=== PATIENT | female | born 1960 | race Caucasian/White ===

== ENCOUNTER → 2017-03-25 | Outpatient (CLI) | payer BC ==
--- NOTE | 2017-03-29 07:20 | MM ---
Reason for exam: screening (asymptomatic). Last mammogram was performed 1 year and 4 months ago. History: Patient had first child at age 40. Family history of breast cancer in maternal aunt at age 60, breast cancer in maternal cousin at age 50, breast cancer in paternal cousin at age 50, breast cancer in paternal cousin at age 45, and breast cancer in maternal aunt at age 50. Took hormonal contraceptives for 17 years beginning at age 29. Physical Findings: A clinical breast exam by your physician is recommended on an annual basis and results should be correlated with mammographic findings. MG 3D Screening Mammo W/Cad Bilateral CC and MLO view(s) were taken. Prior study comparison: December 08, 2015, bilateral MG screening mammo w CAD. September 30, 2014, bilateral MG screening mammo w CAD. August 14, 2013, bilateral digital screening mammo w/CAD. July 24, 2012, bilateral digital screening mammo w/CAD. The breast tissue is heterogeneously dense. This may lower the sensitivity of mammography. No significant changes when compared with prior studies. ASSESSMENT: Negative, BI-RAD 1 RECOMMENDATION: Routine screening mammogram of both breasts in 1 year.
== END | disposition home or self-care (01) ==
LOC: RADMAMWWP 07:48
PROVIDERS: ATTEND Obstetrics & Gynecology
DX: Z12.31 Encounter for screening mammogram for malignant neoplasm of breast (principal); Z80.3 Family history of malignant neoplasm of breast
CPT/HCPCS: 77063; G0202

== ENCOUNTER → 2017-04-18 | Outpatient (CLI) | payer BC ==
--- NOTE | 2017-04-19 10:32 | BD ---
EXAMINATION TYPE: MG DEXA axial skeleton. DATE OF EXAM: 04/18/2017 COMPARISON: NONE CLINICAL HISTORY: N92.1 POST MENOPAUSAL Height: 62 Weight: 146 FRAX RISK QUESTIONS: Alcohol (3 or more units per day): NO Family History (Parent hip fracture): NO Glucocorticoids (More than 3mos): NO (Ex: prednisone, prednisolone, methylprednisolone, dexamethasone, and hydrocortisone). History of Fracture in Adulthood: NO Secondary Osteoporosis: NO 1. Type 1 Diabetes: NO 2. Hyperthyroidism: NO 3. Menopause before 45: NO 4. Malnutrition: NO 5. Chronic liver disease: NO Rheumatoid Arthritis: NO Current Tobacco Use: RISK FACTORS HISTORY OF: ONLY BROKEN TOE IN HER 20'S Family History of Osteoporosis: YES HER MOTHER, NO BROKEN HIP Active: NOT REALLY Diet low in dairy products/other sources of calcium: NO Postmenopausal woman: NOW If Premenopausal, do you have irregular periods: LMP DECEMBER 2016 Lost more than 2 inches in height since high school: NO Hyperparathyroidism: NO Adrenal Insufficiency: NO MEDICATIONS: Prednisone or other steroids: ALBUTEROL INHALERS PRN, NEEL DAILY How Long: FOR YRS Additional Medications: BP MEDS, PROZAC, MULTIVITAMIN, Additional History: ALLERGIES AND TOUCH OF ASTHMA EXAM MEASUREMENTS: Bone mineral densitometry was performed using the [employer] System. Bone mineral density as measured about the Lumbar spine is: ----- L1-L4(G/cm2): 1.303 T Score Values are as follows: ----- L1: 0.8 ----- L2: 0.5 ----- L3: 1.7 ----- L4: 0.9 ----- L1-L4: 1.0 Bone mineral density THIS IS HER FIRST BONE DENSITY EXAM......BASELINE STUDY Bone mineral density about the R hip (g/cm2): 0.947 Bone mineral density about the L hip (g/cm2): 0.904 T Score values are as follows: -----R Neck: -0.7 -----L Neck: -0.6 -----R Total: -0.5 -----L Total: -0.8 Bone mineral density BASELINE STUDY FOR HER TODAY FRAX %'S: THERE IS A 5.5% CHANCE OF A MAJOR OSTEOPOROSIS FX AND A 0.2% CHANCE OF HIP FX......PRO BABILITY IN 10/YRS TIME IMPRESSION: Normal (Values between +1 and -1 indicate normal bone mass). Consider repeating this study in 5 year s or sooner if there is some new clinical indication. FOR BOTH OF HER HIPS AND FOR HER LUMBAR SPINE . NOTE: T-SCORE=SD OF THE YOUNG ADULT MEAN.
== END | disposition home or self-care (01) ==
LOC: RADBDWWP 14:54
PROVIDERS: ATTEND Obstetrics & Gynecology
DX: N95.1 Menopausal and female climacteric states (principal)
CPT/HCPCS: 77080

== ENCOUNTER → 2019-09-24 | Outpatient (CLI) | payer BC ==
--- NOTE | 2019-09-25 09:21 | MM ---
Reason for exam: screening (asymptomatic). Last mammogram was performed 2 years and 6 months ago. History: Patient is postmenopausal and had first child at age 40. Family history of breast cancer in maternal aunt at age 60, breast cancer in maternal cousin at age 50, breast cancer in paternal cousin at age 50, breast cancer in paternal cousin at age 45, and breast cancer in maternal aunt at age 50. Took hormonal contraceptives for 17 years beginning at age 29. Physical Findings: A clinical breast exam by your physician is recommended on an annual basis and results should be correlated with mammographic findings. MG 3D Screening Mammo W/Cad Bilateral CC and MLO view(s) were taken. Prior study comparison: March 25, 2017, bilateral MG 3d screening mammo w/cad. December 08, 2015, bilateral MG screening mammo w CAD. There are scattered fibroglandular densities. No suspicious abnormality. No significant changes when compared with prior studies. ASSESSMENT: Negative, BI-RAD 1 RECOMMENDATION: Routine screening mammogram of both breasts in 1 year.
== END | disposition home or self-care (01) ==
LOC: RADMAMWWP 13:00
PROVIDERS: ATTEND Family Medicine
DX: Z12.31 Encounter for screening mammogram for malignant neoplasm of breast (principal)
CPT/HCPCS: 77063; 77067

== ENCOUNTER → 2022-01-26 | Outpatient (CLI) | payer OTHER ==
--- NOTE | 2022-01-27 13:50 | MM ---
Reason for exam: screening (asymptomatic). Last mammogram was performed 2 years and 4 months ago. History: Patient is postmenopausal and had first child at age 40. Family history of breast cancer in maternal aunt at age 60, breast cancer in maternal cousin at age 50, breast cancer in paternal cousin at age 50, breast cancer in paternal cousin at age 45, and breast cancer in maternal aunt at age 50. Took hormonal contraceptives for 17 years beginning at age 29. Physical Findings: A clinical breast exam by your physician is recommended on an annual basis and results should be correlated with mammographic findings. MG 3D Screening Mammo W/Cad Bilateral CC and MLO view(s) were taken. Prior study comparison: September 24, 2019, bilateral MG 3d screening mammo w/cad. March 25, 2017, bilateral MG 3d screening mammo w/cad. The breast tissue is heterogeneously dense. This may lower the sensitivity of mammography. There is no discrete abnormality. No significant changes when compared with prior studies. ASSESSMENT: Negative, BI-RAD 1 RECOMMENDATION: Routine screening mammogram of both breasts in 1 year.
== END | disposition home or self-care (01) ==
LOC: RADMAMWWP 14:43
PROVIDERS: ATTEND Family Medicine
DX: Z12.31 Encounter for screening mammogram for malignant neoplasm of breast (principal); Z78.0 Asymptomatic menopausal state; Z80.3 Family history of malignant neoplasm of breast
CPT/HCPCS: 77063; 77067

== ENCOUNTER → 2023-02-02 | Outpatient (CLI) | payer OTHER ==
--- NOTE | 2023-02-02 16:06 | BD ---
EXAMINATION TYPE: Axial Bone Density DATE OF EXAM: 02/02/2023 CLINICAL HISTORY: 62 years old Female. ICD-10 CODE: Z78.0 ASYMPTOMATIC MENOPAUSAL STATE,N95.1 Height: 63.5in Weight: 142lb FRAX RISK QUESTIONS: Secondary Osteoporosis: Current Tobacco Use: yes RISK FACTORS HISTORY OF: Family History of Osteoporosis: yes Active: yes Postmenopausal woman: yes MEDICATIONS: Additional Medications: bp meds, vitamin d Additional History: none EXAM MEASUREMENTS: Bone mineral densitometry was performed using the [employer] System. Bone mineral density as measured about the Lumbar spine is: ----- L1-L4(G/cm2): 1.201 T Score Values are as follows: ----- L1: -0.1 ----- L2: -0.1 ----- L3: 0.4 ----- L4: 0.3 ----- L1-L4: 0.2 Z Score Values are as follows: ----- L1: 1.2 ----- L2: 1.2 ----- L3: 1.7 ----- L4: 1.5 ----- L1-L4: 1.4 Bone mineral density has: Decreased -7.8% since study of: 04-18-17 Bone mineral density about the R hip (g/cm2): 0.866 Bone mineral density about the L hip (g/cm2): 0.937 T Score values are as follows: -----R Neck: -1.3 -----L Neck: -0.4 -----R Total: -1.1 -----L Total: -0.6 Z Score values are as follows: -----R Neck: 0.0 -----L Neck: 0.8 -----R Total: -0.2 -----L Total: 0.4 Bone mineral density has: Decreased -2.7% since study of: 04-18-17 FRAX%s: The graph provided illustrates a 7.6% chance for a major osteoporotic fx and a 0.9% chance fo r the hips probability for fx in 10 years time. IMPRESSION: Osteopenia (T Score between -2.5 and -1). There is slightly increased risk of fracture and the patient may be considered for treatment. Re-Screen 2-5 years. NOTE: T-SCORE=SD OF THE YOUNG ADULT MEAN.
--- NOTE | 2023-02-03 22:50 | MM ---
Reason for Exam: Screening (asymptomatic). Last screening mammogram was performed 12 month(s) ago. Patient History: Menarche at age 15. First Full-Term at age 40. Late child-bearing (after 30). Postmenopausal. Hormonal Contraceptives for 17 years from age 29 until age 45. Paternal cousin had breast cancer, age 50. Paternal cousin had breast cancer, age 45. Maternal cousin had breast cancer, age 50. Maternal aunt had breast cancer, age 60. Maternal aunt had breast cancer, age 50. Risk Values: Ruma 5 year model risk: 2.0%. NCI Lifetime model risk: 10.0%. Prior Study Comparison: 03/25/2017 Bilateral Screening Mammogram, [facility]. 09/24/2019 Bilateral Screening Mammogram, [facility]. 01/26/2022 Bilateral Screening Mammogram, [facility]. Tissue Density: There are scattered fibroglandular densities. Findings: Analyzed By CAD. Findings appears stable No suspicious groups of microcalcifications, spiculated or lobular masses, architectural distortion or other secondary signs of malignancy are mammographically apparent. Overall Assessment: Benign, BI-RAD 2 Management: Screening Mammogram of both breasts in 1 year. A negative mammogram report should not preclude additional follow up of suspicious palpable abnormalities. Patient should continue monthly self breast exam. A clinical breast exam by your physician is recommended on an annual basis and results should be correlated with mammographic findings. Electronically signed and approved by: Sidney Donnelly D.O. Radiologis
== END | disposition home or self-care (01) ==
LOC: RADBDWWP 14:59
PROVIDERS: ATTEND Obstetrics & Gynecology
DX: Z12.31 Encounter for screening mammogram for malignant neoplasm of breast (principal); M85.88 Other specified disorders of bone density and structure, other site; Z78.0 Asymptomatic menopausal state; Z80.3 Family history of malignant neoplasm of breast
CPT/HCPCS: 77063; 77067; 77080

== ENCOUNTER → 2024-07-11 | Outpatient (CLI) | payer OTHER ==
--- NOTE | 2024-07-12 10:21 | MM ---
Reason for Exam: Screening (asymptomatic). Last mammogram was performed 1 year(s) and 5 month(s) ago. Patient History: Menarche at age 15. First Full-Term at age 40. Late child-bearing (after 30). Postmenopausal. Hormonal Contraceptives for 17 years from age 29 until age 45. Paternal cousin had breast cancer, age 50. Paternal cousin had breast cancer, age 45. Maternal cousin had breast cancer, age 50. Maternal aunt had breast cancer, age 60. Maternal aunt had breast cancer, age 50. Risk Values: Ruma 5 year model risk: 2.1%. NCI Lifetime model risk: 9.4%. Prior Study Comparison: 09/24/2019 Bilateral Screening Mammogram, [facility]. 01/26/2022 Bilateral Screening Mammogram, [facility]. 02/02/2023 Bilateral MG 3D screening mammo w/cad, [facility]. Tissue Density: The breasts are heterogeneously dense, which may obscure small masses. Findings: Analyzed By CAD. There is no suspicious group of microcalcifications or new suspicious mass in either breast. Overall Assessment: Benign, BI-RAD 2 Management: Screening Mammogram of both breasts in 1 year. . Patient should continue monthly self-breast exams. A clinical breast exam by your physician is recommended on an annual basis. This exam should not preclude additional follow-up of suspicious palpable abnormalities. Note on Ruma scores and lifetime risk: 1. A Ruma score greater than 3% is considered moderate risk. If this is the case, consider specialist referral to assess eligibility for a risk reducing agent. 2. If overall lifetime risk for the development of breast cancer is 20% or higher, the patient may qualify for future screening with alternating mammogram and breast MRI. [facility], , 07/12/2024 10:18 AM. Electronically signed and approved by: Clayton Correa M.D. Radiologis
== END | disposition home or self-care (01) ==
LOC: RADMAMWWP 16:38
PROVIDERS: ATTEND Family Medicine
CPT/HCPCS: 77063; 77067